=== PATIENT | female | born 1970 | race Caucasian/White ===

== ENCOUNTER 2018-07-19 10:45 | Day surgery (SDC) | payer BC, OTHER ==
[~2018-07-19 10:45] MED LIST: Lactated Ringers 1,000 ML IV SCH; Sodium Chloride 0.9% 10 ML SDV IV PRN; Sodium Chloride 0.9% 10 ML Syringe FLUSH PRN; Sodium Chloride 0.9% 2.5 ML Syringe FLUSH PRN
--- NOTE | 2018-07-19 12:32 | PCM.PREANE ---
Preanesthetic Assessment - Anesthesia/Transfusion/Family Hx Anesthesia History: Prior Anesthesia Reaction Family History of Anesthesia Reaction: No Transfusion History: No Prior Transfusion(s) Intubation History: Unknown - Review of Systems General: No Symptoms Pulmonary: No Symptoms Cardiovascular: No Symptoms Gastrointestinal: Other (rectal pain, blood in the stool) Neurological: No Symptoms Other: Reports: None - Physical Assessment O2 Sat by Pulse Oximetry: 98 Respiratory Rate: 16 Vital Signs: Last Vital Signs Temp 36.2 C 07/19/18 11:29 Pulse 88 07/19/18 11:29 Resp 16 07/19/18 11:29 BP 121/74 07/19/18 11:29 Pulse Ox 98 07/19/18 11:29 Height: 1.55 m Weight: 68.946 kg ASA Class: 2 Mental Status: Alert & Oriented x3 Airway Class: Mallampati = 1 Dentition: Reports: Normal Dentition Thyro-Mental Finger Breadths: 3 Mouth Opening Finger Breadths: 3 ROM/Head Extension: Full Lungs: Clear to Auscultation, Normal Respiratory Effort Cardiovascular: Regular Rate, Regular Rhythm - Allergies Allergies/Adverse Reactions: Allergies Allergy/AdvReac Type Severity Reaction Status Date / Time bee venom protein (honey bee) Allergy Other Verified 07/13/18 14:29 erythromycin base Allergy Rash Verified 07/13/18 14:29 - Blood Blood Available: No - Anesthesia Plan Pre-Op Medication Ordered: None - Acknowledgements Anesthesia Type Planned: MAC Pt an Appropriate Candidate for the Planned Anesthesia: Yes Alternatives and Risks of Anesthesia Discussed w Pt/Guardian: Yes Pt/Guardian Understands and Agrees with Anesthesia Plan: Yes PreAnesthesia Questionnaire HEENT History: Reports: Other (See Below) Other HEENT History: wears glasses/contacts, has lower permanent dental retainer Cardiovascular History: Reports: Blood Clots/VTE/DVT Other Cardiovascular History: had multiple blood clots in left leg after plantar fasciotomy- took anticoagulants for 6 months, now takes ASA 325mg daily Gastrointestinal History: Reports: Hemorrhoids, Other (See Below) Other Gastrointestinal History: hx of post-op ileus [employer]ACHINE [employer]ER History: Reports: Musculoskeletal History: Reports: Neck Pain, Chronic Neurological History: Reports: Migraines (controlled with medications) Hematologic History: Reports: Anticoagulation Therapy Other Hematologic History: daily Aspirin 325. mg - Past Surgical History GI Surgical History: Reports: Appendectomy Female Surgical History: Reports: Hysterectomy Musculoskeletal Surgical History: Reports: Shoulder Surgery Other Musculoskeletal Surgeries/Procedures:: hx of left RTCR, hx of left Plantar Fasciotomy - SUBSTANCE USE Smoking Status *Q: Never Smoker Recreational Drug Use History: No - HOME MEDS Home Medications: Home Meds Aspirin [Ecotrin] 325 mg PO DAILY 07/13/18 [History] Butalb/Acetaminophen/Caffeine [Kihmfr-Amrxovkx-Spuq 50-325-40] 1 tab PO ASDIRECTED PRN 07/13/18 [History] Docusate Sodium [Colace] 100 mg PO BID 07/13/18 [History] Ibuprofen 800 mg PO Q8H PRN 07/13/18 [History] - CURRENT (IN HOUSE) MEDS Current Meds: Current Medications Lactated Ringer's (Ringers, Lactated) 1,000 mls @ 125 mls/hr IV ASDIRECTED TIMOTHY Last Admin: 07/19/18 11:36 Dose: 125 mls/hr Sodium Chloride (Saline Flush) 10 ml FLUSH ASDIRECTED PRN PRN Reason: Keep Vein Open Sodium Chloride (Saline Flush) 2.5 ml FLUSH ASDIRECTED PRN PRN Reason: Keep Vein Open Sodium Chloride (Saline Flush) 10 ml FLUSH ASDIRECTED PRN PRN Reason: Keep Vein Open Sodium Chloride (Saline Flush) 2.5 ml FLUSH ASDIRECTED PRN PRN Reason: Keep Vein Open Sodium Chloride (Normal Saline) 10 ml IV ASDIRECTED PRN PRN Reason: IV Use
[2018-07-19] MEDS ORDERED: Ondansetron 4 MG/2 ML SDV ONE (13:33)
[2018-07-19] MEDS ORDERED: Midazolam 1 MG/ML 2 ML SDV ONE (13:33)
[2018-07-19] MEDS ORDERED: Propofol 200 MG/20 ML SDV ONE ×2 (13:33→14:13)
[2018-07-19] MEDS ORDERED: fentaNYL 100 MCG/2 ML SDV ONE (13:33)
--- NOTE | 2018-07-19 14:46 | PCM.OPNOTE ---
- General Post-Op/Procedure Note Date of Surgery/Procedure: 07/19/18 Operative Procedure(s): Diagnostic colonoscopy Findings: Grade IV hemorrhoids Pre Op Diagnosis: Grade IV hemorrhoids Post-Op Diagnosis: same Anesthesia Technique: MAC Primary Surgeon: Narda Piedra Condition: Good
--- NOTE | 2018-07-19 15:08 | PCM48HPAN ---
Post Anesthesia Note - EVALUATION WITHIN 48HRS OF ANESTHETIC Vital Signs in Normal Range: Yes Patient Participated in Evaluation: Yes Respiratory Function Stable: Yes Airway Patent: Yes Cardiovascular Function Stable: Yes Hydration Status Stable: Yes Pain Control Satisfactory: Yes Nausea and Vomiting Control Satisfactory: Yes Mental Status Recovered: Yes Resp Rate: 18 - COMMENTS/OBSERVATIONS Free Text/Narrative:: no anesthesia problems
--- NOTE | 2018-07-20 13:12 | OR ---
SURGEON: AALIYAH NG MD DATE OF PROCEDURE: 07/19/2018 PREOPERATIVE DIAGNOSIS: Grade 4 hemorrhoids. POSTOPERATIVE DIAGNOSIS: Grade 4 hemorrhoids. PROCEDURE PERFORMED: Colonoscopy. ANESTHESIA: MAC. INSTRUMENT USED: Olympus colonoscope. EXTENT OF EXAM: To the cecum. PREPARATION: Good. LIMITATIONS: None. INDICATION FOR EXAMINATION: The patient is a 48-year-old female who presents with grade 4 hemorrhoids and perianal pain. The decision was made to proceed with a diagnostic colonoscopy. I explained the procedure, expected perioperative course, and risks including bleeding, infection, damage to surrounding structures including perforation. The patient verbalized understanding and wishes to proceed. PROCEDURE IN DETAIL: The patient was brought to the endoscopy suite and placed in the left lateral decubitus position. A time-out was completed verifying the patient's name, age, date of , allergies, and procedure to be performed. Monitored anesthesia care was induced and continuous oxygen was provided via nasal cannula throughout the procedure. After adequate sedation was achieved, a digital rectal exam was performed. This exam again revealed grade 4 hemorrhoids with three enlarged hemorrhoidal columns. A well lubricated colonoscope was inserted in the rectum and advanced under direct visualization to the level of the cecum. The cecum was identified by both visual and anatomic landmarks. A photograph was taken of the cecal cap as well as with the scope retroflexed within the cecum. The scope was then straightened out and fully withdrawn while examining the color, texture, anatomy, and integrity of the mucosa from the cecum to the anal canal. The findings were consistent with normal colonic mucosa. The scope was then brought into the rectum and retroflexed to allow visualization of the anal canal opening. Again, I noted enlarged hemorrhoidal tissue. A photograph was taken. The scope was then straightened out and fully withdrawn. The cecum to anus time was greater than 6 minutes. The patient tolerated the procedure well and was transferred to the PACU in stable condition. ENDOSCOPIC DIAGNOSIS: Grade 4 hemorrhoids. RECOMMENDATIONS: The patient is scheduled for a hemorrhoidectomy next Wednesday. The patient overall feels her symptoms have gotten better. It is not sure whether she wants to do this or not. My nurse and I will follow up with the patient later on this week after she has had time to think about things to determine whether or not she would like to proceed with hemorrhoidectomy. JONE / COURTNEY /[id number]
== END 2018-07-19 15:27 | disposition home or self-care (01) ==
LOC: MW.SDS 10:45
PROVIDERS: ATTEND Surgery
DX: K64.3 Fourth degree hemorrhoids (principal); Z88.1 Allergy status to other antibiotic agents; Z91.030 Bee allergy status
CPT/HCPCS: 45378; J2250; J2405; J2704; J3010; J7120